=== PATIENT | male | born 1960 | race Caucasian/White ===

== ENCOUNTER → 2020-11-13 | Outpatient (CLI) | payer BC ==
[~2020-11-13] MED LIST: NORCO 7.5-3251 EACH PO
== END ==
LOC: KOH-I 16:07
DX: M79.641 Pain in right hand (principal); M79.642 Pain in left hand
CPT/HCPCS: 73120

== ENCOUNTER → 2021-04-09 | Outpatient (CLI) | payer BC | LOC: EXRD 09:49 | DX: M19.90 Unspecified osteoarthritis, unspecified site (principal); Z87.898 Personal history of other specified conditions; M25.422 Effusion, left elbow | CPT/HCPCS: 73080 ==